=== PATIENT | female | born 1965 | race Caucasian/White ===

== ENCOUNTER 2017-01-02 09:32 | Day surgery (SDC) | payer OTHER ==
[2015-06-30 06:53] VITALS: BMI 26.5
[2017-01-02] MEDS ORDERED: Lactated Ringer's 500 ML IV ONE (09:41)
[2017-01-02] MEDS ORDERED: Propofol 10 mg/ml Inj (20 ML) ONE (11:01)
[2017-01-02] MEDS ORDERED: Lidocaine 2% MPF (5 ml) Inj ONE (11:01)
[2017-01-02 11:47] VITALS: TEMP 96.8
[2017-01-02 11:48] VITALS: BP 126/70; PULSE 52; RESP 14; O2SAT 99
== END 2017-01-02 14:00 | disposition home or self-care (01) ==
LOC: H.ENDO 09:32
PROVIDERS: ATTEND Internal Medicine Gastroenterology
DX: Z12.11 Encounter for screening for malignant neoplasm of colon (principal); E78.5 Hyperlipidemia, unspecified; I10 Essential (primary) hypertension; J45.909 Unspecified asthma, uncomplicated; D12.7 Benign neoplasm of rectosigmoid junction; D12.0 Benign neoplasm of cecum
CPT/HCPCS: 45385; 88305; J2704; J7120